=== PATIENT | male | born 2000 | race Two or more races ===

== ENCOUNTER 2023-06-22 13:16 | Inpatient (IN) | payer MEDICAID ==
[~2023-06-22] VITALS: Ht 170.2 cm; Wt 59.1 kg
[2023-06-22] MEDS ORDERED: FEXO-353 PO (13:25)
[2023-06-22] MEDS ORDERED: CLON-441 PO (13:25)
[2023-06-22] MEDS ORDERED: [UNRECOGNIZED DRUG - OTHER] PO (13:25)
[2023-06-22] MEDS ORDERED: DIVA-112 PO (13:25)
[2023-06-22] MEDS ORDERED: CLONIDINE PO (13:25)
[2023-06-22] MEDS ORDERED: LEVAHFA IH ×2 (13:25)
[2023-06-22] MEDS ORDERED: FLUT12AE20 IH (13:25)
[2023-06-22] MEDS ORDERED: LITH300C3 PO (13:25)
[2023-06-22] MEDS ORDERED: DIPH12.55 PO (13:26)
[2023-06-22] MEDS ORDERED: LORA-999 PO (13:26)
[2023-06-22] MEDS ORDERED: QUET50TA PO (13:29)
[2023-06-22] MEDS ORDERED: QUET100T34 PO (13:46)
[2023-06-22] MEDS ORDERED: DIPH-1237 PO (13:46)
[2023-06-22 14:22] LABS: BASOPHILS % (AUTO) 0.6 % (0.0-2.0); EOSINOPHILS % (AUTO) 3.2 % (1.0-6.0); HEMATOCRIT 43.6 % (41-53); HEMOGLOBIN 15.2 g/dL (13.5-17.5); LYMPHOCYTES # (AUTO) 1.3 K/uL (1.0-4.8); LYMPHOCYTES % (AUTO) 21.3 % (22.0-44.0); MEAN CORPUSCULAR HEMOGLOBIN 30.9 pg (26.0-34.0); MEAN CORPUSCULAR HGB CONC 34.9 G/dL (31.0-37.0); MEAN CORPUSCULAR VOLUME 89 fL (80-100); MONOCYTES # (AUTO) 0.9 K/uL (0.1-1.0); NEUTROPHILS # (AUTO) 3.8 K/uL (1.8-7.7); NEUTROPHILS % (AUTO) 60.9 % (40.0-70.0); PLATELET COUNT (AUTO) 199 K/uL (150-450); RED BLOOD CELL COUNT(AUTO) 4.92 MIL/uL (4.50-5.90); RED CELL DISTRIBUTION WIDTH 12.5 % (11.5-14.5); WHITE BLOOD COUNT (AUTO) 6.3 K/uL (4.5-11.0)
[2023-06-22 14:45] LABS: ANION GAP 8 mmol/L (8-16); CALCIUM, TOTAL 9.2 mg/dL (8.8-10.5); CARBON DIOXIDE 29 mmol/L (22-29); CHLORIDE 101 mmol/L (98-107); GLOMERULAR FILTR. RATE CALC > 60 mL/min (>60); GLUCOSE,RANDOM 89 mg/dL (70-110); POTASSIUM 3.8 mmol/L (3.5-5.1); SODIUM SERUM 138 mmol/L (136-145); UREA NITROGEN, BLOOD 16 mg/dL (7-18)
[2023-06-22 14:50] LABS: ALANINE AMINOTRANSFERASE 48 U/L (12-78); ALBUMIN 4.1 g/dL (3.4-5.0); ALKALINE PHOSPHATASE 77 U/L (46-116); ASPARTATE AMINOTRANSFERASE 38 U/L (15-37); BILIRUBIN,TOTAL 0.6 mg/dL (0.1-1.0); TOTAL PROTEIN, SERUM 7.3 g/dL (6.4-8.2)
[2023-06-22 15:09] LABS: ALCOHOL, BLOOD (SERUM) < 3 mg/dL (0-10)
[2023-06-22] MEDS ORDERED: DiphenhydrAMINE HCL 25 MG CAPSULE PO ONE ×3 (15:30→23:15)
[2023-06-22 15:36] LABS: COVID AG,FIA SOURCE NASAL SWAB
[2023-06-22 15:55] LABS: PH,URINE DRUG SCREEN 7.5 (5.0-8.0)
[2023-06-22 15:59] LABS: SARS-COV2 (COVID) ANTIGEN,FIA Negative (Negative)
[2023-06-22 16:01] LABS: ALCOHOL, URINE DRUG SCREEN NEGATIVE (NEGATIVE); AMPHET/METH SCREEN,URINE NEGATIVE (NEGATIVE); BARBITURATE SCREEN, URINE NEGATIVE (NEGATIVE); BENZODIAZEPINES SCREEN,URINE NEGATIVE (NEGATIVE); CANNABINOID SCREEN,URINE NEGATIVE (NEGATIVE); COCAINE SCREEN,URINE NEGATIVE (NEGATIVE); METHADONE SCREEN, URINE NEGATIVE (NEGATIVE); OPIATE SCREEN,URINE NEGATIVE (NEGATIVE); PHENCYCLIDINE SCREEN,URINE NEGATIVE (NEGATIVE)
[2023-06-22] MEDS ORDERED: LORazepam 1 MG TABLET PO ONE ×2 (20:30)
[2023-06-22] MEDS ORDERED: QUEtiapine FUMARATE 100 MG TABLET PO ONE (20:30)
[2023-06-22] MEDS ORDERED: HALOPERIDOL 5 MG TABLET PO PRN (21:15)
[2023-06-22] MEDS ORDERED: ZOLPIDEM TARTRATE 10 MG TABLET PO PRN (21:15)
[2023-06-22] MEDS ORDERED: LORazepam 2 MG TABLET PO PRN (21:15)
[2023-06-23] MEDS ORDERED: ZIPRASIDONE MESYLATE 20 MG/VIAL IM ONE (03:00)
[2023-06-23 03:33] VITALS: TEMP 98.3
[2023-06-23] MEDS ORDERED: IBUPROFEN 600 MG TABLET PO PRN (05:15)
[2023-06-23] MEDS ORDERED: MAGNESIUM HYDROXIDE SUSPENSION 30 ML UDCUP PO PRN (05:15)
[2023-06-23] MEDS ORDERED: ACETAMINOPHEN 325 MG TABLET PO PRN (05:15)
[2023-06-23] MEDS ORDERED: LOPERAMIDE HCL 2 MG CAPSULE PO PRN (05:15)
[2023-06-23] MEDS ORDERED: CloNIDine HCL 0.1 MG TABLET PO PRN (05:15)
[2023-06-23] MEDS ORDERED: ALBUTEROL SULFATE HFA 90 MCG/PUFF 8 GM INHALER IH PRN (05:15)
[2023-06-23] MEDS ORDERED: BACITRACIN 28 GM OINTMENT TP PRN (05:15)
[2023-06-23] MEDS ORDERED: PETROLATUM,WHITE 28 GM JELLY TP PRN (05:15)
[2023-06-23] MEDS ORDERED: MAG HYDROX/ALUMINUM HYD/SIMETH ES 30 ML SUSPENSION UDCUP PO PRN (05:15)
[2023-06-23] MEDS ORDERED: ONDANSETRON HCL 4 MG TABLET PO PRN (05:15)
[2023-06-23] MEDS ORDERED: HydrOXYzine HCL 25 MG TABLET PO SCH (09:00)
[2023-06-23] MEDS ORDERED: FEXOFENADINE HCL 60 MG TABLET PO SCH (09:00)
[2023-06-23 09:07] VITALS: BP 122/85; PULSE 103; RESP 20
== END 2023-06-23 11:34 | disposition left against medical advice (07) | DRG 750 ==
LOC: EMS 13:32 → 3EC 23:29
PROVIDERS: ADMIT Psychiatry & Neurology Psychiatry; ATTEND Psychiatry & Neurology Psychiatry
DX: F25.0 Schizoaffective disorder, bipolar type (principal); F41.9 Anxiety disorder, unspecified; F84.0 Autistic disorder; G47.00 Insomnia, unspecified; Z20.822 Contact with and (suspected) exposure to COVID-19; K59.00 Constipation, unspecified; J45.909 Unspecified asthma, uncomplicated; L29.9 Pruritus, unspecified; Z53.29 Procedure and treatment not carried out because of patient's decision for other reasons; Z88.1 Allergy status to other antibiotic agents; Z91.041 Radiographic dye allergy status; Z79.899 Other long term (current) drug therapy
CPT/HCPCS: 80053; 80178; 80307; 85025; 99285; G0480; J3486